=== PATIENT | male | born 1965 | race Caucasian/White ===

== ENCOUNTER 2018-08-29 03:16 | Emergency (ER) | payer OTHER ==
[~2018-08-29] VITALS: Wt 79.4 kg
--- NOTE | ~2018-08-29 | EKG ---
[place], [place] ELECTROCARDIOGRAM REPORT NAME: MARCELO CUTLER UNIT #: [id number] ROOM: DOCTOR: EPIPHANY DRAFT REPORT BIRTHDATE: [birth year] [facility] Test Date: 2018-08-29 Test Time: 03:43:57 Pat Name: MARCELO CUTLER Department: Room: Gender: Food Broker: : 1965 Requested By: LINDEN PRATER Order Number: [id number] Reading MD: Bharat Hough Measurements Intervals [place] Rate: 69 P: 47 WV: 169 QRS: 62 QRSD: 87 T: 52 QT: 390 QTc: 418 Interpretive Statements Sinus rhythm Baseline wander in lead(s) V1 No previous ECG available for comparison Electronically Signed On 08-29-2018 8:58:40 PDT by Bharat Hough CM:EKGRPT:ELECTROCARDIOGRAM REPORT [id number] LINDEN ROSE DRAFT REPORT LINDEN PRATER DO
[~2018-08-29 03:16] MED LIST: MEDROL DOSEPAK4 MG PO; VIBRAMYCIN100 MG PO; ZESTRIL5 MG PO
[2018-08-29 03:46] LABS: BASO % 0.5 % (0.0-1.0); EOS # 0.3 10*3/uL (0.0-0.4); HEMATOCRIT 41.5 % (42.0-52.0); HEMOGLOBIN 13.6 g/dl (14.0-18.0); LYMPH # 1.4 10*3/uL (1.3-4.4); LYMPH % 16.3 % (27.0-41.0); MEAN CELL VOLUME 100.5 fl (80.0-94.0); MEAN CORPUSCULAR HGB 32.9 pg (27.0-31.0); MEAN CORPUSCULAR HGB CONC 32.8 g/dl (33.0-37.0); MEAN PLATELET VOLUME 9.7 fl (9.6-12.3); MONO # 0.6 10*3/uL (0.1-1.0); MONO % 7.5 % (3.0-9.0); NEUT # 6.1 10*3/uL (2.3-7.9); NEUT % 71.3 % (47.0-73.0); PLATELET COUNT AUTOMATED 214 10*3/uL (130-400); RED BLOOD COUNT 4.13 10*6/uL (4.50-5.90); RED CELL DISTRI WIDTH 11.8 % (0-14.5); WHITE BLOOD COUNT 8.5 10*3/uL (4.8-10.8)
[2018-08-29 03:57] LABS: ACT PARTIAL THROMBO TIME 24.4 SECONDS (20.0-32.1); INTERNATIONAL NORM RATIO 0.9 (2.0-3.5)
[2018-08-29 04:45] LABS: ALBUMIN 3.9 gm/dl (3.1-4.5); ALKALINE PHOSPHATASE 42 U/L (45-117); BUN 21 mg/dl (7-24); CHLORIDE 107 mmol/L (98-107); CREATININE 1.12 mg/dL (0.70-1.30); POTASSIUM 3.8 mmol/L (3.5-5.1); SGOT/AST 21 IU/L (3-35); SGPT/ALT 30 U/L (12-78); SODIUM 142 mmol/L (136-145); TOTAL PROTEIN 7.1 gm/dL (6.4-8.2)
[2018-08-29 04:48] LABS: TROPONIN I < 0.015 ng/ml (<0.045)
[2018-08-29] MEDS ORDERED: EPIPEN 2-P0.3 MG/0.3 IJ (06:32)
== END 2018-08-29 06:43 | disposition home or self-care (01) ==
LOC: ED 03:16
PROVIDERS: Student in an Organized Health Care Education/Training Program
DX: T63.441A Toxic effect of venom of bees, accidental (unintentional), initial encounter (principal); R22.0 Localized swelling, mass and lump, head; Z88.0 Allergy status to penicillin; Y92.098 Other place in other non-institutional residence as the place of occurrence of the external cause